=== PATIENT | female | born 1945 | race Caucasian/White ===

== ENCOUNTER 2020-05-23 22:58 | Inpatient (IN) | payer MEDICARE, BC ==
[~2020-05-23] VITALS: Ht 170.2 cm; Wt 81.6 kg
[2020-05-23 23:19] VITALS: BP 176/66
[2020-05-23 23:39] LABS: ABSOLUTE MONOCYTES 0.8 thou/uL (0.0-1.2); BASOPHILS 0.4 %; HEMATOCRIT 42.7 % (37.0-47.0); HEMOGLOBIN 14.5 gm/dL (12.0-15.0); LYMPHOCYTES 12.8 %; MCH 30.6 pg (26.0-34.0); MCHC 33.9 g/dL (28.0-37.0); MCV 90.1 fL (80.0-100.0); MONOCYTES 10.3 %; MPV 9.6 fl. (7.2-11.1); NUCLEATED RBCS 0 /100WBC; PLATELET COUNT* 188 thou/uL (150-400); POLYS 76.5 %; RBC 4.73 mil/uL (4.20-5.00); WBC 7.9 thou/uL (4.0-11.0)
[2020-05-23 23:43] LABS: CALCIUM 9.5 mg/dL (8.5-10.1); CREATININE 0.9 mg/dL (0.6-1.3); POTASSIUM 3.1 mmol/L (3.5-5.1)
[2020-05-23 23:48] LABS: ALBUMIN 2.9 g/dL (3.4-5.0); TOTAL BILIRUBIN 0.4 mg/dL (<0.1-1.0); TOTAL PROTEIN 7.8 g/dL (6.4-8.2)
[2020-05-24 00:08] LABS: BE 1.7 mmol/L (-2 to +3); pH 7.487 (7.340-7.450)
[2020-05-24 10:10] VITALS: BP 167/47
[2020-05-24 10:33] VITALS: BP 164/60
[2020-05-24 12:15] VITALS: BP 164/60
[2020-05-24] MEDS ORDERED: LIALDA1.2 GM PO (13:27)
[2020-05-24] MEDS ORDERED: TRIGLIDE160 MG PO (13:28)
[2020-05-24] MEDS ORDERED: LISINOPRIL-HCT1 EAC1 PO (13:29)
[2020-05-24] MEDS ORDERED: GLIPIZIDE 10 MG10 MG PO (13:29)
[2020-05-24] MEDS ORDERED: SIMVASTATIN80 MG PO (13:30)
[2020-05-24] MEDS ORDERED: D3-200050 MCG PO (13:31)
[2020-05-24] MEDS ORDERED: EYE MULTIVITAM1 EACH PO (13:31)
[2020-05-24 16:35] VITALS: BP 171/64
[2020-05-24 18:59] VITALS: BP 151/71
[2020-05-24 20:14] VITALS: BP 156/66
[2020-05-24 22:54] LABS: BE -2.7 mmol/L (-2 to +3); PCO2 33.7 mmHg (35.0-45.0); PO2 97.9 mmHg (75.0-100.0); pH 7.415 (7.340-7.450)
[2020-05-25 00:15] VITALS: BP 178/74
[2020-05-25 04:15] VITALS: BP 158/60
[2020-05-25 07:38] LABS: HEMATOCRIT 40.5 % (37.0-47.0); HEMOGLOBIN 13.7 gm/dL (12.0-15.0); MCH 30.4 pg (26.0-34.0); MCHC 33.7 g/dL (28.0-37.0); MCV 90.1 fL (80.0-100.0); RBC 4.49 mil/uL (4.20-5.00); RDW-CV 12.7 % (10.5-14.5); WBC 4.9 thou/uL (4.0-11.0)
[2020-05-25 07:41] LABS: BE 2.3 mmol/L (-2 to +3); PCO2 36.5 mmHg (35.0-45.0); pH 7.467 (7.340-7.450)
[2020-05-25 07:43] LABS: PO2 58.5 mmHg (75.0-100.0)
[2020-05-25 07:49] LABS: CALCIUM 8.8 mg/dL (8.5-10.1); CREATININE 0.8 mg/dL (0.6-1.3); POTASSIUM 3.2 mmol/L (3.5-5.1)
[2020-05-25 07:56] VITALS: BP 158/62
[2020-05-25 12:18] VITALS: BP 163/125
[2020-05-25 15:01] VITALS: BP 157/69
[2020-05-25 15:49] LABS: APTT 25.6 Seconds (25.0-31.3); INR 1.1; PROTIME 11.6 Seconds (9.20-11.50)
[2020-05-25 19:35] VITALS: BP 174/65
[2020-05-26] VITALS (7 sets, daily range): BP systolic 155–198; BP diastolic 48–71
[2020-05-26 05:44] LABS: HEMATOCRIT 40.1 % (37.0-47.0); HEMOGLOBIN 13.4 gm/dL (12.0-15.0); MCH 30.3 pg (26.0-34.0); MCHC 33.5 g/dL (28.0-37.0); MCV 90.3 fL (80.0-100.0); MPV 9.2 fl. (7.2-11.1); NUCLEATED RBCS 0 /100WBC; PLATELET COUNT* 219 thou/uL (150-400); RBC 4.44 mil/uL (4.20-5.00); RDW-CV 12.9 % (10.5-14.5); WBC 9.8 thou/uL (4.0-11.0)
[2020-05-26 06:02] LABS: ALBUMIN 2.9 g/dL (3.4-5.0); CALCIUM 9.4 mg/dL (8.5-10.1); MAGNESIUM 2.3 mg/dL (1.8-2.4); POTASSIUM 3.5 mmol/L (3.5-5.1); TOTAL BILIRUBIN 0.3 mg/dL (<0.1-1.0); TOTAL PROTEIN 6.9 g/dL (6.4-8.2)
[2020-05-26 07:04] LABS: ABSOLUTE LYMPHOCYTES 0.4 thou/uL (0.8-5.3); ABSOLUTE MONOCYTES 0.3 thou/uL (0.0-1.2); ABSOLUTE NEUTROPHILS 9.1 thou/uL (1.6-8.1); ANISOCYTOSIS 1+; PLATELET ESTIMATE ADEQUATE
[2020-05-26 07:05] LABS: POIKILOCYTOSIS 1+
--- NOTE | 2020-05-26 16:30 | EKG ---
[place] [address] ELECTROCARDIOGRAM REPORT Name: KELYMINDY Room: [address] ADM IN M.R.#: [id number] Admission: 05/24/20 Attend Phys: Lam Dupree Discharge: Date of : 49 Date of Service: 05/23/20 2349 Report #: [id number] THIS REPORT FOR: //name// [facility] ED Test Date: 2020-05-23 Test Time: 23:49:21 Pat Name: MINDY EDGE Department: Room: [address] Gender: F Patroller: DT : 1945 Requested By: Pooja Jackson Order Number: [id number] Amanda MD: Pipe Vallecillo Measurements Intervals [place] Rate: 80 P: 42 [place]: 180 QRS: 13 QRSD: 88 T: 14 QT: 390 QTc: 450 Interpretive Statements Sinus rhythm Low voltage, precordial leads Borderline repolarization abnormality No previous ECG available for comparison Electronically Signed On 05-26-2020 16:30:19 [employer] by Pipe Vallecillo [email or web address] <ELECTRONICALLY SIGNED> By: Pipe Vallecillo MD, [facility] 05/26/20 1630 2349 2349 Pipe Vallecillo MD, [facility] /EPI
[2020-05-27] VITALS (8 sets, daily range): BP systolic 153–180; BP diastolic 55–73
[2020-05-27 05:33] LABS: ABSOLUTE LYMPHOCYTES 0.5 thou/uL (0.8-5.3); ABSOLUTE MONOCYTES 0.7 thou/uL (0.0-1.2); ABSOLUTE NEUTROPHILS 11.7 thou/uL (1.6-8.1); BASOPHILS 0.1 %; HEMATOCRIT 39.7 % (37.0-47.0); HEMOGLOBIN 13.2 gm/dL (12.0-15.0); LYMPHOCYTES 3.8 %; MCH 29.8 pg (26.0-34.0); MCHC 33.2 g/dL (28.0-37.0); MCV 89.8 fL (80.0-100.0); MONOCYTES 5.5 %; MPV 9.8 fl. (7.2-11.1); NUCLEATED RBCS 0 /100WBC; PLATELET COUNT* 230 thou/uL (150-400); POLYS 90.6 %; RBC 4.42 mil/uL (4.20-5.00); WBC 12.9 thou/uL (4.0-11.0)
[2020-05-27 05:34] LABS: ALBUMIN 2.6 g/dL (3.4-5.0); CALCIUM 9.5 mg/dL (8.5-10.1); CREATININE 0.7 mg/dL (0.6-1.3); MAGNESIUM 1.9 mg/dL (1.8-2.4); POTASSIUM 3.2 mmol/L (3.5-5.1); TOTAL BILIRUBIN 0.3 mg/dL (<0.1-1.0); TOTAL PROTEIN 6.9 g/dL (6.4-8.2)
[2020-05-28] VITALS: BP 172/63
[2020-05-28 04:00] VITALS: BP 168/57
[2020-05-28 06:47] LABS: ABSOLUTE LYMPHOCYTES 0.6 thou/uL (0.8-5.3); ABSOLUTE MONOCYTES 0.8 thou/uL (0.0-1.2); ABSOLUTE NEUTROPHILS 12.5 thou/uL (1.6-8.1); BASOPHILS 0.1 %; HEMATOCRIT 40.1 % (37.0-47.0); HEMOGLOBIN 13.4 gm/dL (12.0-15.0); MCH 29.9 pg (26.0-34.0); MCHC 33.3 g/dL (28.0-37.0); MCV 89.8 fL (80.0-100.0); MONOCYTES 5.5 %; MPV 9.6 fl. (7.2-11.1); NUCLEATED RBCS 0 /100WBC; PLATELET COUNT* 250 thou/uL (150-400); POLYS 90.4 %; RBC 4.47 mil/uL (4.20-5.00); RDW-CV 12.7 % (10.5-14.5); WBC 13.8 thou/uL (4.0-11.0)
[2020-05-28 07:16] LABS: ALBUMIN 2.6 g/dL (3.4-5.0); CALCIUM 8.9 mg/dL (8.5-10.1); CREATININE 0.6 mg/dL (0.6-1.3); POTASSIUM 3.8 mmol/L (3.5-5.1); TOTAL BILIRUBIN 0.4 mg/dL (<0.1-1.0); TOTAL PROTEIN 6.7 g/dL (6.4-8.2)
[2020-05-28 08:30] VITALS: BP 158/64
[2020-05-28 12:16] VITALS: BP 118/73
[2020-05-28 16:32] VITALS: BP 171/59
[2020-05-28 20:00] VITALS: BP 150/70
[2020-05-29] VITALS (7 sets, daily range): BP systolic 135–171; BP diastolic 59–76
[2020-05-29 05:04] LABS: ABSOLUTE LYMPHOCYTES 0.6 thou/uL (0.8-5.3); ABSOLUTE MONOCYTES 0.7 thou/uL (0.0-1.2); ABSOLUTE NEUTROPHILS 11.5 thou/uL (1.6-8.1); BASOPHILS 0.1 %; HEMATOCRIT 42.4 % (37.0-47.0); HEMOGLOBIN 13.9 gm/dL (12.0-15.0); LYMPHOCYTES 4.6 %; MCH 29.8 pg (26.0-34.0); MCHC 32.9 g/dL (28.0-37.0); MCV 90.6 fL (80.0-100.0); MONOCYTES 5.8 %; NUCLEATED RBCS 0 /100WBC; PLATELET COUNT* 239 thou/uL (150-400); POLYS 89.5 %; RBC 4.68 mil/uL (4.20-5.00); RDW-CV 12.9 % (10.5-14.5); WBC 12.8 thou/uL (4.0-11.0)
[2020-05-29 05:29] LABS: PREALBUMIN 20.3 mg/dL (18.0-35.7)
[2020-05-29 05:39] LABS: ALBUMIN 2.6 g/dL (3.4-5.0); CALCIUM 10.1 mg/dL (8.5-10.1); CREATININE 0.8 mg/dL (0.6-1.3); POTASSIUM 4.4 mmol/L (3.5-5.1); TOTAL BILIRUBIN 0.4 mg/dL (<0.1-1.0); TOTAL PROTEIN 6.8 g/dL (6.4-8.2)
--- NOTE | 2020-05-29 08:44 | CON ---
[address] [address] CONSULTATION Name: MINDY EDGE Room: [address] IN M.R.#: [id number] Admission: 05/24/20 Attend Phys: Serjio Marsh Discharge: Date of : 49 Report #: [id number] THIS REPORT FOR: //name// cc: NANCY SANCHEZ MD, VAISHALI B. MD ~ DATE OF SERVICE: 05/25/2020 REQUESTING PHYSICIAN: Consult has been requested by Dr. Koroma. INDICATION FOR CONSULTATION: Acute hypoxemic respiratory failure secondary to COVID-19. HISTORY OF PRESENT ILLNESS: A 74-year-old female has a previous history of smoking; however, does not carry a diagnosis of COPD. She does have diabetes. The patient is now admitted with increasing shortness of breath about 2 weeks' duration. She has had some cough, not much sputum, has not had a fever, but she says that she has been feeling malaise. She was found to be hypoxemic upon arrival and currently she is requiring 13-15 liters of oxygen via high flow nasal cannula to maintain O2 saturation in the low 90s. The patient, however, despite being significantly hypoxemic is only mildly short of breath at rest. She does have some swelling of lower extremities as well. She answers to the negative for 12 questions for review of systems except as mentioned above. PAST MEDICAL HISTORY: Diabetes, hypertension, hyperlipidemia. CURRENT MEDICATIONS: List in [employer] reviewed. SOCIAL HISTORY: She does have a previous history of smoking. Occasional alcohol use. No known history of illegal drug use. ALLERGIES: She is reported to have an allergy or adverse reaction to METFORMIN. FAMILY HISTORY: There is no pertinent family history. PHYSICAL EXAMINATION: GENERAL: She was alert, awake and oriented, did not appear to be in any distress at this time, but at the time of my evaluation, she was saturating around 92% on 13 liters oxygen via nasal cannula. VITAL SIGNS: Pulse 82, blood pressure 157/69, respiratory rate 19, afebrile with a temperature of 36.3, T-max of 37.5. HEENT: Head is normocephalic and atraumatic. NECK: Does not show raised JVP, asymmetry, mass or lymph nodes. CHEST: Symmetrical expansion on inspection and palpation. On auscultation, chest is clear. HEART: Regular. There is no murmur. ABDOMEN: [place] [address] CONSULTATION Name: MINDY EDGE Room: [address]#: [id number] Admission: 05/24/20 Attend Phys: Serjio Marsh Discharge: Date of : 49 Report #: [id number] EXTREMITIES: Lower extremities do show 1+ edema, no calf tenderness. SKIN: Dry and intact. NEUROLOGICAL: Moves all extremities bilaterally equally and spontaneously with no focal deficit identified. LABORATORY DATA: The patient's chest x-ray as well as lab work is in [facility] and this is reviewed. ASSESSMENT AND PLAN: 1. Acute hypoxemic respiratory failure. We will continue to titrate oxygen if the patient's condition worsens, then we will consider placing her on a BiPAP while asleep. 2. COVID-19, I agree with remdesivir as well as dexamethasone. In fact, I went ahead and increased the dose of dexamethasone. She has had 1 unit of convalescent plasma already. I recommend that we go ahead and give a second unit and therefore, I went ahead and ordered the same. 3. Edema of lower extremities/evaluation for thromboembolic phenomena. I obtain D-dimer. It is elevated. The patient does have significant edema and is hypoxemic. Therefore, I went ahead and gave a dose of Lasix. Last potassium was low. A total of 80 mEq of potassium was ordered as a to 2 grams of mag. I ordered a CTA chest as well as venous Dopplers, pending these, I ordered a full dose of Lovenox. 4. Pulmonary infiltrates. I also agree with current antibiotics with Zithromax and ceftriaxone. 5. History of diabetes. The patient has significant hyperglycemia. This is likely to worsen the increasing dexamethasone. For now, I increased insulin sliding scale. Suggest following the insulin and adding a lot if the glucoses do remain elevated. 6. History of hypertension. Note that the patient is on hydrochlorothiazide, which may be the reason for her hypokalemia, adding Aldactone later could be a possible consideration. Thanks for this consultation. <ELECTRONICALLY SIGNED> By: Fred Soares MD 05/29/2044 19 99Fred Soares MD /nt
[2020-05-30 04:41] VITALS: BP 135/69
[2020-05-30 05:21] LABS: HEMATOCRIT 42.3 % (37.0-47.0); HEMOGLOBIN 14.1 gm/dL (12.0-15.0); MCH 30.2 pg (26.0-34.0); MCHC 33.4 g/dL (28.0-37.0); MCV 90.2 fL (80.0-100.0); MPV 9.5 fl. (7.2-11.1); NUCLEATED RBCS 0 /100WBC; PLATELET COUNT* 241 thou/uL (150-400); RBC 4.68 mil/uL (4.20-5.00); RDW-CV 12.9 % (10.5-14.5); WBC 14.8 thou/uL (4.0-11.0)
[2020-05-30 05:41] LABS: ALBUMIN 2.6 g/dL (3.4-5.0); CALCIUM 8.7 mg/dL (8.5-10.1); CREATININE 0.9 mg/dL (0.6-1.3); MAGNESIUM 2.1 mg/dL (1.8-2.4); POTASSIUM 3.8 mmol/L (3.5-5.1); TOTAL BILIRUBIN 0.3 mg/dL (<0.1-1.0); TOTAL PROTEIN 6.2 g/dL (6.4-8.2)
[2020-05-30 07:07] LABS: ABSOLUTE BASOPHILS 0.1 thou/uL (0.0-0.2); ABSOLUTE LYMPHOCYTES 1.2 thou/uL (0.8-5.3); ABSOLUTE NEUTROPHILS 13.5 thou/uL (1.6-8.1); METAMYELOCYTES 1 %; PLATELET ESTIMATE ADEQUATE
[2020-05-30 08:00] VITALS: BP 146/83
[2020-05-30] MEDS ORDERED: PROTONIX40 M2 PO (09:36)
[2020-05-30] MEDS ORDERED: DOXYCYCLINE 10100 MG PO (09:36)
[2020-05-30] MEDS ORDERED: VENTOLIN HFA 1818 GM INH (09:36)
[2020-05-30] MEDS ORDERED: DEXAMETHASONE1 MG PO (09:36)
[2020-05-30] MEDS ORDERED: FLORASTOR250 MG PO (09:36)
[2020-05-30] MEDS ORDERED: HUMALOG100 UNIT/1 SUBQ (09:38)
[2020-05-30 16:16] VITALS: BP 146/83
[2020-05-30 16:33] VITALS: BP 146/83
[2020-05-30 16:41] VITALS: BP 146/83
[2020-05-31 03:06] LABS: GLYCOHEMOGLOBIN (HGB A1C) 10.6 % (4.8-5.6)
== END 2020-05-30 16:45 | disposition home health service (06) | DRG 177 ==
LOC: M.ERS 22:58 → M.TBA-ER 05-24 01:40 → M.ORTHSURG 05-24 01:40
PROVIDERS: Internal Medicine; Internal Medicine Critical Care Medicine; Personal Emergency Response Attendant; ADMIT Internal Medicine; ATTEND Internal Medicine
PROC: XW033E5 Introduction of Remdesivir Anti-infective into Peripheral Vein, Percutaneous Approach, New Technology Group 5 (ICD-10-PCS; 2020-05-24)
PROC: XW13325 Transfusion of Convalescent Plasma (Nonautologous) into Peripheral Vein, Percutaneous Approach, New Technology Group 5 (ICD-10-PCS; principal; 2020-05-25)
PROC: 05HY33Z Insertion of Infusion Device into Upper Vein, Percutaneous Approach (ICD-10-PCS; 2020-05-26)
DX: U07.1 COVID-19 (principal); J12.89 Other viral pneumonia; J96.01 Acute respiratory failure with hypoxia; J15.6 Pneumonia due to other Gram-negative bacteria; E78.00 Pure hypercholesterolemia, unspecified; E78.5 Hyperlipidemia, unspecified; E11.22 Type 2 diabetes mellitus with diabetic chronic kidney disease; N18.30 Chronic kidney disease, stage 3 unspecified; I12.9 Hypertensive chronic kidney disease with stage 1 through stage 4 chronic kidney disease, or unspecified chronic kidney disease; Z88.8 Allergy status to other drugs, medicaments and biological substances; Z99.81 Dependence on supplemental oxygen; Z87.891 Personal history of nicotine dependence